=== PATIENT | male | born 1960 | race Caucasian/White ===

== ENCOUNTER 2017-06-13 12:14 | Emergency (ER) | payer OTHER ==
[~2017-06-13] VITALS: Ht 177.8 cm; Wt 108.9 kg
[~2017-06-13 12:14] MED LIST: ATENOLOL100 MG PO; COMPLETE MULTI1 EAC3 PO; IBUPROFEN IB200 MG PO; LOSARTAN POTAS100 MG PO; MELOXICAM15 MG PO; METHOCARBAMOL500 MG PO; OMEPRAZOLE20 MG PO; PERCOCET 10-321 EACH PO; TRAMADOL HCL50 MG PO; ZINC50 MG PO
[2017-06-13] MEDS ORDERED: METOPROLOL SUC200 MG PO (12:30)
== END 2017-06-13 16:28 | disposition short-term general hospital (02) ==
LOC: ED 12:14
DX: S72.141A Displaced intertrochanteric fracture of right femur, initial encounter for closed fracture (principal); I10 Essential (primary) hypertension; Z79.899 Other long term (current) drug therapy; W01.0XXA Fall on same level from slipping, tripping and stumbling without subsequent striking against object, initial encounter
CPT/HCPCS: 73502; 96374; 96375; 99285; J1170; J1885; J7040

== ENCOUNTER 2018-08-19 07:29 | Day surgery (SDC) | payer OTHER ==
[~2018-08-19] VITALS: Ht 177.8 cm; Wt 112.9 kg
[~2018-08-19 07:29] MED LIST changes: +ADULT LOW DOSE81 MG PO; +DILTIAZEM 24HR120 M1 PO; +METOPROLOL SUC200 MG PO; +VITAMIN D5000 UNIT PO
--- NOTE | 2018-08-19 09:55 | NUR ---
08/19/18 0955 Indy Arvizu 0951-PATIENT ARRIVED TO PACU ON 2L NC AWAKE DENIES PAIN OR NAUSEA. LAYING LEFT LATERAL. RR EVEN. ENCOURAGED TO PASS GAS.
--- NOTE | 2018-08-20 07:47 | OR ---
[facility] [address] [place], [place] [address] Signed DATE OF OPERATION: 08/19/2018 SURGEON: Hanna De León MD PREOPERATIVE DIAGNOSIS: Screening. POSTOPERATIVE DIAGNOSIS: Unremarkable colonoscopy. PROCEDURE: Colonoscopy without biopsy. ESTIMATED BLOOD LOSS: None. INDICATIONS: Merced is a 57-year-old gentleman, who was asked to see me for his initial screening colonoscopy. He has degenerative disk disease in his back and just had to have his right hip replaced. 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 He said he has no lower GI complaints. There is no family history of colon cancer or polyps. I gave him a pamphlet on colonoscopy in the office and I reviewed that with him in detail. He understands the nature of the test along with the risks including, but not limited to gas bloating, crampy abdominal pain, bleeding, perforation, requiring surgery, and missed diagnosis. He told me he is a little worried about anesthesia because he was having some hallucinations after his hip surgery. I explained to Merced, we gave IV conscious sedation and usually that is not an issue. We also gave him a preoperative antibiotic because of his hip replacement. He had expressed understanding and wished to proceed. PROCEDURE NOTE: Merced was taken into our endoscopy suite and placed in the left lateral decubitus position. He was given 8 mg of Versed and 200 mcg of fentanyl to cover the case. A digital rectal exam was performed and this was unremarkable. He is just starting to get a little induration to the prostate. The adult colonoscope was introduced and advanced all around into the cecum under direct visualization of camera without difficulty. His prep was good. The scope was slowly withdrawn. We took pictures throughout for photodocumentation. We saw no pathology throughout the entire colon or rectum. Upon retroflexion of the scope, there was no additional pathology noted above the anal canal. We thought he might have some very mild tiger striping in his colon. If he is on Electronically Signed By: HANNA DE LEÓN MD 08/20/18 0747 PATIENT NAME: MERCED CHOI OPERATIVE REPORT DATE OF : 64 REPORT #: [id number] PHYSICIAN: HANNA DE LEÓN MD PCP: CL SANTOS DO REPORT IS CONFIDENTIAL AND NOT TO BE RELEASED WITHOUT AUTHORIZATION [address] [address] Signed laxatives, he should strongly consider MiraLAX and a fiber product. Merced actually tolerated the procedure quite well. RECOMMENDATIONS: Merced can follow up in 10 years for repeat colonoscopy. If he is requiring laxatives, he should use polyethylene glycol and a fiber product. MD CLAUS Mcfadden/RUTH /[id number] cc: MD Hanna Mcfadden Dr. Copies: HANNA DE LEÓN MD ~ Electronically Signed By: HANNA DE LEÓN MD 08/20/18 0747 PATIENT NAME: MERCED CHOI OPERATIVE REPORT DATE OF : 64 REPORT #: [id number] PHYSICIAN: HANNA DE LEÓN MD PCP: CL SANTOS DO REPORT IS CONFIDENTIAL AND NOT TO BE RELEASED WITHOUT AUTHORIZATION
== END 2018-08-19 10:30 | disposition home or self-care (01) ==
LOC: OPS 07:29 → DS 07:29 → OPS 09:00
PROVIDERS: Colon & Rectal Surgery
PROC: 0DJD8ZZ Inspection of Lower Intestinal Tract, Via Natural or Artificial Opening Endoscopic (ICD-10-PCS; principal; 2018-08-19 09:00)
DX: Z12.11 Encounter for screening for malignant neoplasm of colon (principal); N42.89 Other specified disorders of prostate; I10 Essential (primary) hypertension; E55.9 Vitamin D deficiency, unspecified; Z88.5 Allergy status to narcotic agent; Z79.82 Long term (current) use of aspirin; Z79.899 Other long term (current) drug therapy
CPT/HCPCS: G0500; J2250; J3010; J3490; J7120

== ENCOUNTER 2025-03-24 12:40 | Emergency (ER) | payer MEDICARE ==
[~2025-03-24] VITALS: Ht 177.8 cm; Wt 128.1 kg
[2025-03-24 15:11] LABS: BLOOD/HGB, URINE NEGATIVE (Negative); KETONE, URINE NEGATIVE (Negative); LEUK ESTERASE, URINE NEGATIVE (negative); NITRITE, URINE NEGATIVE (negative)
[2025-03-24] MEDS ORDERED: MORPHINE SULFATE 4 MG/ML VIAL IV ONE (15:15)
[2025-03-24 15:17] LABS: BACTERIA, URINE NONE SEEN /hpf (negative); CASTS, URINE NONE SEEN \\lpf; CRYSTALS, URINE AMORPHOUS PHOSPH 1+ (0-1+); EPITHELIAL CELLS, URINE NS /lpf (0-1+); REFLEX CULTURE, URINE No (No)
[2025-03-24 15:20] LABS: BASOPHILS 0.1 % (0.2-1.2); EOSINOPHILS 0.1 % (0.8-7.0); LYMPHOCYTES 4.1 % (21.8-53.1); MCH 28.8 PG (25.7-32.2); MCHC 33.7 g/dL (32.3-36.5); MCV 85.5 fL (79.0-92.2); MONOCYTES 7.5 % (5.3-12.2); NEUTROPHILS 87.9 % (34.0-67.9); RBC 5.79 M/uL (4.63-6.08)
[2025-03-24] MEDS ORDERED: ATORVASTATIN CA20 MG PO (15:24)
[2025-03-24] MEDS ORDERED: METOPROLOL SUC100 MG PO (15:24)
[2025-03-24] MEDS ORDERED: LISINOPRIL20 MG PO (15:24)
[2025-03-24] MEDS ORDERED: PHENTERMINE HCL30 MG PO (15:24)
[2025-03-24] MEDS ORDERED: SODIUM CHLORIDE 0.9% 2,000 ML IV PRN (15:30)
[2025-03-24] MEDS ORDERED: PIPERACILLIN/TAZOBACTAM 4.5 GM in SODIUM CHLORIDE 0.9% 100 ML IV ONE (15:30)
[2025-03-24 16:13] LABS: LACTIC ACID, BLOOD 1.6 mmol/L (0.4-2.0)
[2025-03-24] MEDS ORDERED: MORPHINE SULFATE 4 MG/ML VIAL IV SCH (16:15)
[2025-03-24] MEDS ORDERED: MORPHINE SULFATE 4 MG/ML VIAL IV PRN (16:15)
[2025-03-24 16:17] LABS: INR 1.12 (0.80-1.30); PROTIME 14.0 Sec (11.2-14.2)
[2025-03-24 16:20] LABS: ALT (SGPT) 45.0 U/L (14-59); AST (SGOT) 45.0 U/L (15-37); GLOMERULAR FILTRATION RATE,EST 59.0 mL/min (>60); PROTEIN, TOTAL 8.1 g/dL (6.4-8.2); UREA NITROGEN 18.0 mg/dL (7-18)
[2025-03-24] MEDS ORDERED: LIDOCAINE 2% VISCOUS 6 ML SYR TOP ONE (17:15)
[2025-03-24] MEDS ORDERED: LORazepam 2 MG/ML VIAL IV ONE (17:30)
[2025-03-24] MEDS ORDERED: SODIUM CHLORIDE 0.9% 1,000 ML IV SCH (19:15)
[2025-03-24] MEDS ORDERED: METOPROLOL TARTRATE 5 MG/5 ML VIAL IV ONE (19:15)
[2025-03-24 22:25] VITALS: BP 166/78
== END 2025-03-24 22:41 | disposition short-term general hospital (02) ==
LOC: ED 12:40
PROVIDERS: Emergency Medicine
DX: N13.2 Hydronephrosis with renal and ureteral calculous obstruction (principal); K56.0 Paralytic ileus; I10 Essential (primary) hypertension; Z79.899 Other long term (current) drug therapy
CPT/HCPCS: 36415; 71045; 74177; 80053; 81001; 83605; 83690; 85025; 85610; 85730; 96365; 96375; 96376; 99285-25; J2060; J2270; J2405; J2543; J7030; Q9967